=== PATIENT | female | born 1975 | race Caucasian/White ===

== ENCOUNTER 2016-10-26 12:27 | Emergency (ER) | payer MEDICAID ==
[~2016-10-26] VITALS: Ht 154.9 cm; Wt 123.8 kg
[2016-10-26 15:33] VITALS: BP 136/80
== END 2016-10-26 15:33 | disposition home or self-care (01) ==
LOC: ED 12:27
DX: M43.6 Torticollis (principal); M54.6 Pain in thoracic spine; R60.0 Localized edema; E11.9 Type 2 diabetes mellitus without complications; Z79.84 Long term (current) use of oral hypoglycemic drugs
CPT/HCPCS: J1885; Q0092

== ENCOUNTER 2016-11-15 19:53 | Emergency (ER) | payer MEDICAID ==
[2016-11-15 21:21] VITALS: BP 136/58
== END 2016-11-15 21:21 | disposition home or self-care (01) ==
LOC: ED 19:53
DX: S83.91XA Sprain of unspecified site of right knee, initial encounter (principal); E11.9 Type 2 diabetes mellitus without complications; E66.01 Morbid (severe) obesity due to excess calories; Z79.84 Long term (current) use of oral hypoglycemic drugs; W01.0XXA Fall on same level from slipping, tripping and stumbling without subsequent striking against object, initial encounter; Y93.89 Activity, other specified; Y92.89 Other specified places as the place of occurrence of the external cause; Y99.8 Other external cause status
CPT/HCPCS: Q0092

== ENCOUNTER 2017-02-03 11:03 | Emergency (ER) | payer MEDICAID ==
[2017-02-03 12:55] VITALS: BP 112/69
== END 2017-02-03 12:55 | disposition home or self-care (01) ==
LOC: ED 11:03
DX: H60.92 Unspecified otitis externa, left ear (principal); E11.9 Type 2 diabetes mellitus without complications

== ENCOUNTER 2017-05-25 20:07 | Emergency (ER) | payer SELFPAY ==
[~2017-05-25] VITALS: Ht 162.6 cm; Wt 94.3 kg
[2017-05-25 20:23] VITALS: Ht 162.6 cm; Wt 94.3 kg
[2017-05-25 22:54] VITALS: BP 125/76
== END 2017-05-25 22:54 | disposition home or self-care (01) ==
LOC: ED 20:07
DX: R51 Headache (principal); H52.10 Myopia, unspecified eye; R11.0 Nausea; E11.9 Type 2 diabetes mellitus without complications
CPT/HCPCS: 82962; J3030

== ENCOUNTER 2018-07-18 09:02 | Emergency (ER) | payer MEDICAID ==
[~2018-07-18] VITALS: Ht 154.9 cm; Wt 106.6 kg
[2018-07-18 09:05] VITALS: BP 125/78; Ht 154.9 cm; Wt 106.6 kg
== END 2018-07-18 10:52 | disposition home or self-care (01) ==
LOC: ED 09:02
DX: M54.6 Pain in thoracic spine (principal); R05 Cough; M79.10 Myalgia, unspecified site; J02.9 Acute pharyngitis, unspecified; E11.9 Type 2 diabetes mellitus without complications
CPT/HCPCS: J1885